=== PATIENT | female | born 1955 | race Caucasian/White ===

== ENCOUNTER 2017-11-02 22:52 | Emergency (ER) | payer OTHER ==
[~2017-11-02] VITALS: Ht 162.5 cm; Wt 68.0 kg
[~2017-11-02 22:52] MED LIST: ATIVAN0.5 MG PO; VICODIN 500 MG-1 TAB PO
== END 2017-11-02 23:03 | disposition home or self-care (01) ==
LOC: ED 22:52
DX: S10.86XA Insect bite of other specified part of neck, initial encounter (principal); W57.XXXA Bitten or stung by nonvenomous insect and other nonvenomous arthropods, initial encounter; Y93.89 Activity, other specified; Y92.89 Other specified places as the place of occurrence of the external cause; Y99.9 Unspecified external cause status

== ENCOUNTER 2019-11-19 10:43 | Emergency (ER) | payer MEDICARE, OTHER ==
[~2019-11-19] VITALS: Ht 162.5 cm; Wt 59.0 kg
[2019-11-19] MEDS ORDERED: NORCO 5-325 TA1 EACH PO ×3 (13:37→13:43)
[2019-11-20] MEDS ORDERED: NORCO 5-325 TA1 EACH PO (11:59)
== END 2019-11-19 14:20 | disposition home or self-care (01) ==
LOC: ED 10:43
DX: S42.302A Unspecified fracture of shaft of humerus, left arm, initial encounter for closed fracture (principal); S09.90XA Unspecified injury of head, initial encounter; W17.89XA Other fall from one level to another, initial encounter; Y93.89 Activity, other specified; Y92.89 Other specified places as the place of occurrence of the external cause; Y99.8 Other external cause status

== ENCOUNTER 2020-07-21 11:03 | Emergency (ER) | payer MEDICARE, OTHER ==
[~2020-07-21] VITALS: Ht 162.5 cm; Wt 59.0 kg
[~2020-07-21 11:03] MED LIST changes: +NORCO 5-325 TA1 EACH PO
[2020-07-21] MEDS ORDERED: HYDROCODONE-AC1 EAC1 PO (15:12)
== END 2020-07-21 14:37 | disposition home or self-care (01) ==
LOC: ED 11:03
DX: S42.295A Other nondisplaced fracture of upper end of left humerus, initial encounter for closed fracture (principal); W18.39XA Other fall on same level, initial encounter; Y93.89 Activity, other specified; Y92.89 Other specified places as the place of occurrence of the external cause; Y99.8 Other external cause status

== ENCOUNTER → 2020-07-30 | Outpatient (CLI) | payer MEDICARE, OTHER ==
[~2020-07-30] MED LIST changes: +HYDROCODONE-AC1 EAC1 PO
== END | disposition home or self-care (01) ==
LOC: ORTHO 01:34
PROVIDERS: ATTEND Orthopaedic Surgery
DX: S42.309D Unspecified fracture of shaft of humerus, unspecified arm, subsequent encounter for fracture with routine healing (principal); X58.XXXD Exposure to other specified factors, subsequent encounter

== ENCOUNTER → 2020-08-12 | Outpatient (CLI) | payer MEDICARE, OTHER | END | disposition home or self-care (01) | LOC: ORTHO 02:36 | PROVIDERS: ATTEND Orthopaedic Surgery | DX: S42.202D Unspecified fracture of upper end of left humerus, subsequent encounter for fracture with routine healing (principal); X58.XXXD Exposure to other specified factors, subsequent encounter ==

== ENCOUNTER → 2020-09-02 | Outpatient (CLI) | payer MEDICARE, OTHER | END | disposition home or self-care (01) | LOC: ORTHO 00:40 | PROVIDERS: ATTEND Orthopaedic Surgery | DX: S42.202D Unspecified fracture of upper end of left humerus, subsequent encounter for fracture with routine healing (principal); X58.XXXD Exposure to other specified factors, subsequent encounter ==

== ENCOUNTER → 2022-09-22 | Outpatient (CLI) | payer MEDICARE, OTHER | END | disposition home or self-care (01) | LOC: RAD 13:45 | PROVIDERS: ATTEND Family Medicine | DX: M17.11 Unilateral primary osteoarthritis, right knee (principal) ==

== ENCOUNTER → 2022-09-26 | Outpatient (CLI) | payer MEDICARE, OTHER | END | disposition home or self-care (01) | LOC: US 01:06 | PROVIDERS: ATTEND Family Medicine | DX: M79.661 Pain in right lower leg (principal) ==

== ENCOUNTER → 2022-10-03 | Outpatient (CLI) | payer MEDICARE, OTHER | END | disposition home or self-care (01) | LOC: MRI 00:22 | PROVIDERS: ATTEND Family Medicine | DX: S83.241A Other tear of medial meniscus, current injury, right knee, initial encounter (principal); M17.11 Unilateral primary osteoarthritis, right knee; M71.21 Synovial cyst of popliteal space [Baker], right knee; X58.XXXA Exposure to other specified factors, initial encounter; Y93.89 Activity, other specified; Y92.89 Other specified places as the place of occurrence of the external cause; Y99.8 Other external cause status ==

== ENCOUNTER → 2022-10-15 | Outpatient (CLI) | payer MEDICARE, OTHER ==
[2022-10-15 08:54] LABS: ALKALINE PHOSPHATASE 78 U/L (46-116); BUN 15 mg/dl (9-23); CHLORIDE 104 mmol/L (98-107); SGPT/ALT 27 U/L (10-49); TOTAL PROTEIN 7.2 gm/dL (6.0-8.0)
== END | disposition home or self-care (01) ==
LOC: LAB 07:30
PROVIDERS: ATTEND Orthopaedic Surgery
DX: R53.81 Other malaise (principal)

== ENCOUNTER 2024-09-28 12:40 | Inpatient (IN) | payer MEDICARE, OTHER ==
[~2024-09-28] VITALS: Ht 162.5 cm; Wt 64.2 kg
[2024-09-28] MEDS ORDERED: Meclizine Hydrochloride 25 MG TAB PO ONE (12:45)
[2024-09-28] MEDS ORDERED: diazePAM 5 MG TAB PO ONE (12:45)
[2024-09-28] MEDS ORDERED: SODIUM CHLORIDE 0.9% 1,000 ML IV ONE (12:45)
[2024-09-28 12:47] VITALS: BP 157/89
[2024-09-28 12:58] LABS: BASO # 0.1 10*3/uL (0.0-0.1); BASO % 0.9 % (0.0-1.0); EOS # 0.1 10*3/uL (0.0-0.4); EOS % 1.5 % (1.0-4.0); HEMATOCRIT 40.6 % (37.0-47.0); MEAN CELL VOLUME 92.7 fl (81.0-99.0); MEAN CORPUSCULAR HGB 29.9 pg (27.0-31.0); MEAN CORPUSCULAR HGB CONC 32.3 g/dl (33.0-37.0); MEAN PLATELET VOLUME 9.8 fl (9.6-12.3); MONO # 0.4 10*3/uL (0.1-1.0); NEUT # 3.5 10*3/uL (2.3-7.9); NEUT % 65.9 % (47.0-73.0); PLATELET COUNT AUTOMATED 236 10*3/uL (130-400); RED BLOOD COUNT 4.38 10*6/uL (4.10-5.10); RED CELL DISTRI WIDTH 12.1 % (0-14.5); WHITE BLOOD COUNT 5.3 10*3/uL (4.8-10.8)
[2024-09-28 13:11] VITALS: BP 130/70
[2024-09-28 13:19] LABS: ALKALINE PHOSPHATASE 74 U/L (46-116); BUN 17 mg/dl (9-23); CHLORIDE 104 mmol/L (98-107); POTASSIUM 4.1 mmol/L (3.4-5.1); SGPT/ALT 21 U/L (5-49); TOTAL PROTEIN 6.9 gm/dL (6.0-8.0)
[2024-09-28 14:19] LABS: BILIRUBIN Negative (Negative); BLOOD Trace-Intact (Negative); CLARITY Clear (Clear); COLOR Yellow (Yellow); GLUCOSE Negative (Negative); KETONE 1+ (Negative); LEUKO ESTERASE Negative (Negative); NITRITE Negative (Negative); PH 7.5 (4.5-8.0); UROBILINOGEN 0.2 E.U./dl (0.0-1.0)
[2024-09-28 14:22] LABS: BACTERIA TRACE; EPITHELIAL CELLS 0-2
[2024-09-28] MEDS ORDERED: BISACODYL 5 MG TAB PO PRN (16:10)
[2024-09-28] MEDS ORDERED: ACETAMINOPHEN 325 MG TAB PO PRN (16:10)
[2024-09-28] MEDS ORDERED: ACETAMINOPHEN 650 MG SUPP R PRN (16:10)
[2024-09-28] MEDS ORDERED: BISACODYL 10 MG SUPP R PRN (16:10)
[2024-09-28] MEDS ORDERED: Ondansetron Hydrochloride 4 MG/2 ML VIAL IV PRN (16:10)
[2024-09-28] MEDS ORDERED: Acetaminophen/Hydrocodone 5 MG/325 MG TABLET PO PRN (16:10)
[2024-09-28] MEDS ORDERED: TEMAZEPAM 15 MG CAP PO PRN (16:10)
[2024-09-28] MEDS ORDERED: Magnesium Hydroxide 30 ML UDC PO PRN (16:10)
[2024-09-28] MEDS ORDERED: Meclizine Hydrochloride 12.5 MG TAB PO PRN (16:50)
[2024-09-28] MEDS ORDERED: SODIUM CHLORIDE 0.9% 100 ML BAG IV ONE (16:50)
[2024-09-28] MEDS ORDERED: IOHEXOL 350 MG/ML 100 ML VIAL IV ONE (16:50)
[2024-09-28 17:40] VITALS: BP 141/73
[2024-09-28 20:00] VITALS: BP 122/62
[2024-09-28] MEDS ORDERED: Doxycycline Hyclate 100 MG TAB PO SCH (22:00)
[2024-09-28] MEDS ORDERED: ATORVASTATIN CALCIUM 40 MG TABLET PO SCH (22:00)
[2024-09-29 06:22] LABS: ACT PARTIAL THROMBO TIME 26.8 SECONDS (20.0-32.1)
[2024-09-29 06:45] LABS: BASO # 0.1 10*3/uL (0.0-0.1); BASO % 1.1 % (0.0-1.0); EOS # 0.2 10*3/uL (0.0-0.4); EOS % 2.8 % (1.0-4.0); HEMATOCRIT 39.3 % (37.0-47.0); MEAN CELL VOLUME 92.3 fl (81.0-99.0); MEAN CORPUSCULAR HGB 30.3 pg (27.0-31.0); MEAN CORPUSCULAR HGB CONC 32.8 g/dl (33.0-37.0); MEAN PLATELET VOLUME 10.3 fl (9.6-12.3); MONO # 0.6 10*3/uL (0.1-1.0); MONO % 10.3 % (3.0-9.0); NEUT # 2.9 10*3/uL (2.3-7.9); PLATELET COUNT AUTOMATED 218 10*3/uL (130-400); RED BLOOD COUNT 4.26 10*6/uL (4.10-5.10); RED CELL DISTRI WIDTH 12.4 % (0-14.5); WHITE BLOOD COUNT 5.7 10*3/uL (4.8-10.8)
[2024-09-29 06:52] LABS: ALKALINE PHOSPHATASE 70 U/L (46-116); BUN 11 mg/dl (9-23); CHLORIDE 104 mmol/L (98-107); POTASSIUM 3.9 mmol/L (3.4-5.1); SGPT/ALT 17 U/L (5-49); TOTAL PROTEIN 6.3 gm/dL (6.0-8.0)
[2024-09-29] MEDS ORDERED: diazePAM 5 MG TAB PO PRN (07:30)
[2024-09-29 08:00] VITALS: BP 134/77
[2024-09-29] MEDS ORDERED: Enoxaparin Sodium 40 MG/0.4 ML SYR SC SCH (10:00)
[2024-09-29] MEDS ORDERED: ASPIRIN ENTERIC COATED 81 MG TAB PO SCH (10:00)
[2024-09-29 12:00] VITALS: BP 133/70
[2024-09-29 16:00] VITALS: BP 127/81
[2024-09-29 20:00] VITALS: BP 129/73
[2024-09-30 06:32] LABS: BASO # 0.1 10*3/uL (0.0-0.1); BASO % 1.2 % (0.0-1.0); EOS # 0.1 10*3/uL (0.0-0.4); EOS % 3.1 % (1.0-4.0); HEMATOCRIT 38.4 % (37.0-47.0); MEAN CELL VOLUME 94.8 fl (81.0-99.0); MEAN CORPUSCULAR HGB 30.1 pg (27.0-31.0); MEAN CORPUSCULAR HGB CONC 31.8 g/dl (33.0-37.0); MONO # 0.5 10*3/uL (0.1-1.0); MONO % 12.3 % (3.0-9.0); NEUT # 1.5 10*3/uL (2.3-7.9); NEUT % 35.3 % (47.0-73.0); PLATELET COUNT AUTOMATED 203 10*3/uL (130-400); RED BLOOD COUNT 4.05 10*6/uL (4.10-5.10); RED CELL DISTRI WIDTH 12.3 % (0-14.5); WHITE BLOOD COUNT 4.1 10*3/uL (4.8-10.8)
[2024-09-30 06:41] LABS: BUN 12 mg/dl (9-23); CHLORIDE 107 mmol/L (98-107); POTASSIUM 3.9 mmol/L (3.4-5.1)
[2024-09-30 08:00] VITALS: BP 127/65
[2024-09-30] MEDS ORDERED: GADOTERATE MEGLUMINE 7.5 MMOL/15 ML VIAL IV ONE (08:04)
[2024-09-30] MEDS ORDERED: ATORVASTATIN CA40 M1 PO (11:13)
[2024-09-30] MEDS ORDERED: DOXYCYCLINE MO100 MG PO (11:13)
[2024-09-30] MEDS ORDERED: ASPIRIN ADULT L81 M2 PO (11:13)
[2024-09-30] MEDS ORDERED: MECLIZINE HCL25 M2 PO (11:13)
[2024-09-30 12:00] VITALS: BP 125/72
[2024-09-30 15:39] VITALS: BP 148/82
== END 2024-09-30 17:25 | disposition home or self-care (01) | DRG 69 ==
LOC: ED 12:40 → EDHOLD 15:47 → 5E 15:47
PROVIDERS: Internal Medicine; ADMIT Family Medicine; ATTEND Family Medicine
DX: G45.9 Transient cerebral ischemic attack, unspecified (principal); A69.20 Lyme disease, unspecified; H83.02 Labyrinthitis, left ear; H81.22 Vestibular neuronitis, left ear; R73.9 Hyperglycemia, unspecified; Z82.49 Family history of ischemic heart disease and other diseases of the circulatory system; Z82.3 Family history of stroke; Z81.8 Family history of other mental and behavioral disorders